=== PATIENT | male | born 1950 | race Caucasian/White ===

== ENCOUNTER → 2017-01-27 | Outpatient (CLI) | payer MEDICARE, OTHER ==
[2017-01-27 11:15] LABS: HEMOGLOBIN 15.8 gm/dl (14.0-17.5); RED BLOOD COUNT 5.01 M/UL (4.20-5.50); WHITE BLOOD COUNT 5.9 K/UL (4.5-11.0)
[2017-01-27 11:53] LABS: BUN/CREATININE RATIO 17 (0-10)
== END ==
PROVIDERS: Nurse Practitioner
DX: E03.9 Hypothyroidism, unspecified (principal); E55.9 Vitamin D deficiency, unspecified; I10 Essential (primary) hypertension; E78.5 Hyperlipidemia, unspecified; R53.83 Other fatigue
CPT/HCPCS: 36415; 80053; 80061; 84436; 84443; 84480; 85025

== ENCOUNTER → 2017-04-28 | Outpatient (CLI) | payer MEDICARE, OTHER | LOC: LAB 10:55 | DX: E55.9 Vitamin D deficiency, unspecified (principal) | CPT/HCPCS: 36415 ==

== ENCOUNTER → 2021-03-15 | Outpatient (CLI) | payer OTHER, MEDICARE ==
[~2021-03-15] MED LIST: CENTRUM COMPLE1 EACH PO; COZAAR25 MG PO; ECOTRIN325 MG PO; FLOMAX 0.4 MG0.4 MG PO; LIPITOR40 MG PO; METOPROLOL TART25 MG PO; NITROGLYCERIN0.4 MG SL; OMEPRAZOLE20 M2 PO; PROSCAR 5 MG TAB5 MG PO; PROVENTIL HFA6.7 GM INH; ZYRTEC10 MG PO
== END ==
LOC: NM 12:48
DX: I25.118 Atherosclerotic heart disease of native coronary artery with other forms of angina pectoris (principal); R06.02 Shortness of breath
CPT/HCPCS: 78452; 93017; A9502; J2785